=== PATIENT | male | born 1995 | race Caucasian/White ===

== ENCOUNTER 2020-03-13 04:54 | Emergency (ER) | payer OTHER ==
[2020-03-13 06:01] VITALS: BP 122/70; PULSE 74; TEMP 97.8; BMI 19.5
== END 2020-03-13 06:05 | disposition home or self-care (01) ==
LOC: JER 04:54
DX: L30.9 Dermatitis, unspecified (principal)
CPT/HCPCS: 99283-25

== ENCOUNTER 2020-06-09 16:32 | Emergency (ER) | payer OTHER ==
[2020-06-09 16:48] VITALS: BP 109/75; PULSE 83; TEMP 98.6; BMI 20.3
--- NOTE | 2020-06-09 17:21 | PDOC ---
History of Present Illness - General Chief Complaint: Rash Stated Complaint: ECZEMA Time Seen by Provider: 06/09/20 17:02 - History of Present Illness Initial Comments: 06/09/20 17:18 24-year-old male with a history of Eczema presents for evaluation of exacerbation of symptoms of rash and itching x1 month no systemic symptoms 06/09/20 17:19 Past History - Medical History Allergies/Adverse Reactions: Allergies Allergy/AdvReac Type Severity Reaction Status Date / Time shellfish derived Allergy Mild Rash Verified 06/09/20 16:44 shrimp Allergy Mild Rash Verified 06/09/20 16:44 Home Medications: Ambulatory Orders Triamcinolone 0.1% Ointment [Aristocort 0.1% Ointment -] 1 applic TP BID #1 tube 01/05/20 Clobetasol Propionate [Impoyz] 1 applic TP BID #60 g 01/22/20 Diphenhydramine HCl [Benadryl -] 25 mg PO Q6H #28 capsule 03/13/20 Triamcinolone 0.1% Cream [Aristocort 0.1% Cream -] 0 gm TP QID #1 tube 03/13/20 Clobetasol Propionate [Temovate] 30 gm TP BID #1 oint...g. 06/09/20 Methylprednisolone [Medrol Dose Samuel] 4 mg PO ASDIR #21 tablet 06/09/20 COPD: No - Immunization History Immunization Up to Date: Yes - Psycho-Social/Smoking History Smoking History: Never smoked Have you smoked in the past 12 months: Yes Number of Cigarettes Smoked Daily: 1 If you are a former smoker, when did you quit?: 6 months ago - Substance Abuse Hx (Audit-C & DAST Scrn) How often the patient has a drink containing alcohol: Never Score: In Men: 4 or > Positive; In Women: 3 or > Positive: 0 Screen Result (Pos requires Nsg. Audit-10AR): Negative Review of Systems - Review of Systems Constitutional: No: Fever Integumentary: Yes: Pruritus, Rash *Physical Exam - Vital Signs Last Vital Signs Temp Pulse Resp BP Pulse Ox 98.6 F 83 18 109/75 98 06/09/20 16:44 06/09/20 16:44 06/09/20 16:44 06/09/20 16:44 06/09/20 16:44 - Physical Exam General Appearance: Yes: Nourished, Appropriately Dressed. No: Apparent Distress HEENT: positive: Symmetrical Neck: positive: Supple Respiratory/Chest: negative: Respiratory Distress Musculoskeletal: positive: Normal Inspection Extremity: positive: Other (There is a papular rash on the forearms and right lower leg some superficial excoriations without indication of secondary infection) Medical Decision Making - Medical Decision Making 06/09/20 17:19 Exacerbation of Eczema rash. Clobetasol and Medrol Dosepak follow-up with dermatology I have reviewed the pathophysiology with the patient. They are in agreement wi th the treatment plan all questions were answered to their satisfaction. Understanding for follow-up without fail was also conveyed to the patient. Again they are in agreement. 06/09/20 17:19 Discharge - Discharge Information Problems reviewed: Yes Clinical Impression/Diagnosis: Eczema Condition: Stable Disposition: HOME - Admission No - Additional Discharge Information Prescriptions: Methylprednisolone [Medrol Dose Samuel] 4 mg PO ASDIR #21 tablet Clobetasol Propionate [Temovate] 30 gm TP BID #1 oint...g. - Follow up/Referral Referrals: Vinnie Warner MD [Primary Care Provider] - Camryn Ragland MD [Staff Physician] - - Patient Discharge Instructions Additional Instructions: Please use the medication as directed and return to the emergency room should you have further issues. Without fail follow-up with dermatology in 1 to 2 days for further evaluation and treatment options. - Post Discharge Activity
--- OUTSIDE RECORDS SUMMARY | 2020-06-09 18:10 | XMS ---
:1995 Author Organization [facility] Care Team Providers Name Role Phone ED STAFF PHYSICIANSOLANGE Unavailable Unavailable ED STAFF PHYSICIAN, STAFF Unavailable Unavailable ED STAFF PHYSICIANGORAN Unavailable Unavailable Re-disclosure Warning The records that you are about to access may contain information from federally- assisted alcohol or drug abuse programs. If such information is present, then the following federally mandated warning applies: This information has been disclosed to you from records protected by federal confidentiality rules (42 CFR part 2). The federal rules prohibit you from making any further disclosure of this information unless further disclosure is expressly permitted by the written consent of the person to whom it pertains or as otherwise permitted by 42 CFR part 2. A general authorization for the release of medical or other information is NOT sufficient for this purpose. The Federal rules restrict any use of the information to criminally investigate or prosecute any alcohol or drug abuse patient.The records that you are about to access may contain highly sensitive health information, the redisclosure of which is protected by Article 27-F of the [facility] Public Health law. If you continue you may haveaccess to information: Regarding HIV / AIDS; Provided by facilities licensed or operated by the [facility] Office of Mental Health; or Provided by the [facility] Office for People With Developmental Disabilities. If such information is present, then the following [facility] mandated warning applies: This information has been disclosed to you from confidential records which are protected by state law. State law prohibits you from making any further disclosure of this information without the specific written consent of the person to whom it pertains, or as otherwise permitted by law. Any unauthorized further disclosure in violation of state law may result in a fine or prison sentence or both. A general authorization for the release of medical or other information is NOT sufficient authorization for further disclosure. Encounters Encounter Providers Location Date Indications Data Source(s ) Emergency Attender: [facility] H 04/14/2020 [facility] STAFF 03:20:00 PM EDT Medical C enter PHYSICIANAttender: - 04/14/2020 STAFF ED STAFF 04:21:00 PM EDT PHYSICIANAdmitter: [facility] ED STAFF PHYSICIAN Patient discharged. Emergency Attender: [facility] STAFF H 03/31/2020 08:24:00 AM [facility] PHYSICIANAttender: STAFF ED EDT - 03/31/2020 [facility] STAFF PHYSICIANAdmitter: 11:13:00 AM EDT [place] ED STAFF PHYSICIAN Patient discharged. Medications Medication Brand Start Product Dose Route Administrative Pharmacy [facility] Indications Reaction Description Data Name Date Form Instructions Instructions Source(s) Clobetasol clobet 1 complet Ally t Propionate asol [facility] [place] 0.0005 0.05 % Medical MG/MG Ointme Center Topical nt, Ointment Ordere clobetasol d By: 0.05 % Margar Ointment, yneny Ordered By: Kwan Marie PADire PADirection ctions s: 1 : 1 application applic topical ation twice a day topica l twice a day Hydrocortis hydroc 1 complet Javy nt one 25 ortiso ed [place] MG/ML ne 2.5 Medical Topical % Center Cream Cream, hydrocortis Ordere one 2.5 % d By: Cream, Tieton Ordered By: Patrick Rosado MDDire MDDirection ctions s: 1 : 1 application applic topical ation twice a day topica PRN itching l twice a day PRN [place] Insurance Providers Payer name Policy type Policy ID Covered Covered libertarian's Policy P steffen / Coverage libertarian ID relationship to Michele Inf ormation type michele [employer] [id number] SP [id number] H MEDICAID [id number] SP [id number] O [facility] O [id number] 01 [id number] [facility] HEALTHC[facility] SELF PAY SP INSURANCE PENDING SP EXCHANGE Problems, Conditions, and Diagnoses Code Display Name Description Problem Type Effective Dates Data Source(s) L30.9 Dermatitis, DERMATITIS, Diagnosis 04/14/2020 [facility] unspecified UNSPECIFIED 03:20:00 PM EDT Medical Center R21 Rash and other RASH AND OTHER Diagnosis 03/31/2020 [facility] nonspecific skin NONSPECIFIC SKIN 08:24:00 AM E [facility] eruption ERUPTION Social History Code Duration Value Status Description Data Source(s ) Smoking 04/14/2020 Denies Ever completed Denies Ever Smoked [facility] 03:35:00 PM EDT Smoked Medical C enter Smoking 04/14/2020 Denies Ever completed Denies Ever Smoked [facility] 03:26:00 PM EDT Smoked Medical C enter Smoking 03/31/2020 Denies Ever completed Denies Ever Smoked [facility] 09:42:00 AM EDT Smoked Medical C enter Smoking 03/31/2020 Denies Ever completed Denies Ever Smoked [facility] 09:00:00 AM EDT Smoked Medical C enter Vital Signs ID Date Data Source UNK Name Value Range Interpretation Code Description Data Source(s) Body temperature 36.383089 36.245265 [facility] Respiratory rate 18 /min 18 /min [facility] Diastolic blood 70 mm[Hg] 70 mm[Hg] [facility] Systolic blood 120 mm[Hg] 120 mm[Hg] [facility] Body weight 57.447043 kg 57.190692 kg [facility] Body temperature 36.041033 36.568810 [facility] Respiratory rate 18 /min 18 /min [facility] Oxygen saturation 98 % 98 % [facility] Naina pool in Arterial blood [facility] by Pulse oximetry Heart rate 84 /min 84 /min [facility] Body height 170.993968 170.553422 cm [facility] Diastolic blood 72 mm[Hg] 72 mm[Hg] [facility] Systolic blood 121 mm[Hg] 121 mm[Hg] [facility] Body mass index 19.7 kg/m2 19.7 kg/m2 [facility] (BMI) [Ratio] [facility] Body temperature 36.907240 36.282319 [facility] Respiratory rate 17 /min 17 /min [facility] Oxygen saturation 98 % 98 % [facility] in Arterial blood [facility] by Pulse oximetry Heart rate 73 /min 73 /min [facility] Diastolic blood 73 mm[Hg] 73 mm[Hg] [facility] pressure [facility] Systolic blood 147 mm[Hg] 147 mm[Hg] [facility] pressure [facility] [place] Patient Treatment Plan of Care Planned Activity Planned Date Details Description Data Source (s) Clobetasol Propionate 0.0005 [facility] Medical MG/MG Topical Ointment Cente r Hydrocortisone 25 MG/ML [facility] Topical Cream [place]
== END 2020-06-09 17:52 | disposition home or self-care (01) ==
LOC: JER 16:32 → JERFT 16:32
DX: L20.9 Atopic dermatitis, unspecified (principal)
CPT/HCPCS: 99282-25

== ENCOUNTER 2020-06-22 13:34 | Emergency (ER) | payer OTHER ==
--- NOTE | 2020-06-22 13:50 | PDOC ---
Rapid Medical Evaluation Time Seen by Provider: 06/22/20 13:47 Medical Evaluation: Allergies Allergy/AdvReac Type Severity Reaction Status Date / Time shellfish derived Allergy Mild Rash Verified 06/09/20 16:44 shrimp Allergy Mild Rash Verified 06/09/20 16:44 06/22/20 13:47 I have performed a brief in-person examination on this patient. CC: rash to b/l arms and legs PE: scaly flesh colored raised rash to elbows. LE exam deferred Orders: nothing Patient will proceed to ED for further evaluation. Discharge Disposition - Diagnosis Eczema - Referrals - Patient Instructions - Post Discharge Activity
[2020-06-22 13:51] VITALS: BP 121/63; PULSE 84; TEMP 98.2; BMI 20.3
--- NOTE | 2020-06-22 14:56 | PDOC ---
History of Present Illness - General Chief Complaint: Rash Stated Complaint: SKIN RASH Time Seen by Provider: 06/22/20 13:47 History Source: Patient Exam Limitations: Clinical Condition - History of Present Illness Initial Comments: 06/22/20 14:56 Patient with past medical history of eczema present with complaint of flareup of his eczema for the past month with rash to bilateral elbow and lower legs consistent with his eczema. Patient reported eczema usually improved with clobetasol steroid cream. Denies any other symptoms Timing/Duration: reports: other (1 month) Past History - Medical History Allergies/Adverse Reactions: Allergies Allergy/AdvReac Type Severity Reaction Status Date / Time shellfish derived Allergy Mild Rash Verified 06/22/20 13:47 shrimp Allergy Mild Rash Verified 06/22/20 13:47 Home Medications: Ambulatory Orders Triamcinolone 0.1% Ointment [Aristocort 0.1% Ointment -] 1 applic TP BID #1 tube 01/05/20 Diphenhydramine HCl [Benadryl -] 25 mg PO Q6H #28 capsule 03/13/20 Triamcinolone 0.1% Cream [Aristocort 0.1% Cream -] 0 gm TP QID #1 tube 03/13/20 Clobetasol Propionate [Temovate] 30 gm TP BID #1 oint...g. 06/09/20 Methylprednisolone [Medrol Dose Samuel] 4 mg PO ASDIR #21 tablet 06/09/20 Clobetasol Propionate [Impoyz] 1 applic TP BID 7 Days #60 g 06/22/20 COPD: No - Immunization History Immunization Up to Date: Yes - Psycho-Social/Smoking History Smoking History: Never smoked Have you smoked in the past 12 months: Yes Number of Cigarettes Smoked Daily: 1 If you are a former smoker, when did you quit?: 6 months ago Information on smoking cessation initiated: No - Substance Abuse Hx (Audit-C & DAST Scrn) How often the patient has six or more drinks on one occasion: Less than monthly Score: In Men: 4 or > Positive; In Women: 3 or > Positive: 1 Screen Result (Pos requires Nsg. Audit-10AR): Negative In the last yr the pt used illegal drug/Rx for NonMed reason: No Score: Yes response is considered Positive: 0 Screen Result (Positive result requires Nsg. DAST-10): Negative Review of Systems - Review of Systems Able to Perform ROS?: Yes Is the patient limited Somali proficient: No Constitutional: No: Chills, Fever, Malaise HEENTM: No: Symptoms Reported, See HPI, Eye Pain, Blurred Vision, Tearing, Recent change in vision, Double Vision, Cataracts, Ear Pain, Ocular Prothesis, Ear Discharge, Nose Pain, Nose Congestion, Tinnitus, Nose Bleeding, Hearing Loss, Throat Pain, Throat Swelling, Mouth Pain, Dental Problems, Difficulty Swallowing, Mouth Swelling, Other Respiratory: No: Symptoms reported, See HPI, Cough, Orthopnea, Shortness of Breath, SOB with Exertion, SOB at Rest, Stridor, Wheezing, Productive cough, Hemoptysis, Other Cardiac (ROS): No: Symptoms Reported, See HPI, Chest Pain, Edema, Irregular Heart Rate, Lightheadedness, Palpitations, Syncope, Chest Tightness, Other Musculoskeletal: No: Symptoms Reported, See HPI, Muscle Pain Integumentary: Yes: Symptoms Reported, See HPI, Rash (eczema) Neurological: No: Numbness, Tingling, Weakness All Other Systems: Reviewed and Negative *Physical Exam - Vital Signs Last Vital Signs Temp Pulse Resp BP Pulse Ox 98.2 F 84 16 121/63 99 06/22/20 13:47 06/22/20 13:47 06/22/20 13:47 06/22/20 13:47 06/22/20 13:47 - Physical Exam 06/22/20 14:59 GENERAL: Well developed, well nourished. Awake and alert. No acute distress. HEENT: Normocephalic, atraumatic. PERRLA, EOMI. No conjunctival pallor. Sclera are non-icteric. Moist mucous membranes. Oropharynx is clear. NECK: Supple. Full ROM. PULMONARY: No evidence of respiratory distress. MUSCULOSKELETAL Normal range of motion at all joints. No tenderness of bilateral upper and lower extremities SKIN: Warm and dry. Normal capillary refill. erythematous plaques to olecranon of bilateral elbow pain anterior hopkins of bilateral lower leg with mild excoriations from scratching. No open wounds. No rash anywhere else. NEUROLOGICAL: Alert, awake, appropriate. Gait is normal without ataxia. PSYCHIATRIC: Cooperative. Good eye contact. Appropriate mood General Appearance: Yes: Nourished, Appropriately Dressed. No: Apparent Distress Medical Decision Making - Medical Decision Making 06/22/20 14:57 Patient with past medical history of eczema present with complaint of flareup of his eczema for the past month with rash to bilateral elbow and lower legs consistent with his eczema. Patient reported eczema usually improved with clobetasol steroid cream. Denies any other symptoms Exam significant for erythematous plaques to olecranon of bilateral elbow pain anterior hopkins of bilateral lower leg with mild excoriations from scratching. No open wounds. No rash anywhere else. Symptoms consistent with patient's eczema. Patient stable for discharge on clobetasol with dermatology follow-up Discharge - Discharge Information Problems reviewed: Yes Clinical Impression/Diagnosis: Eczema Qualifiers: Eczema type: unspecified Qualified Code(s): L30.9 - Dermatitis, unspecified Condition: Stable Disposition: HOME - Admission No - Additional Discharge Information Prescriptions: Clobetasol Propionate [Impoyz] 1 applic TP BID 7 Days #60 g - Follow up/Referral Referrals: Camryn Ragland MD [Staff Physician] - Abner Patrick [Staff Physician] - - Patient Discharge Instructions Patient Printed Discharge Instructions: Eczema, DI for Atopic Dermatitis-Adult Additional Instructions: Use prescribed cream as prescribed for eczema. Follow-up referring derm atologist as soon as possible - Post Discharge Activity
== END 2020-06-22 15:00 | disposition home or self-care (01) ==
LOC: JERFT 13:34
DX: L30.9 Dermatitis, unspecified (principal)
CPT/HCPCS: 99282-25

== ENCOUNTER 2021-02-18 03:45 | Emergency (ER) | payer OTHER ==
[2021-02-18 03:54] VITALS: BMI 19.5
[2021-02-18] MEDS ORDERED: EPINEPHrine 1:1,000 0.3 MG/0.3 ML SYR IM ONE (03:54)
[2021-02-18] MEDS ORDERED: FAMOTIDINE 20 MG/50 ML IVPB 20 MG/50 ML MG IVPB ONE ×2 (03:54→03:56)
[2021-02-18] MEDS ORDERED: EPINEPHrine/PF 1 MG/1 ML (1:1,000) AMPULE ONE (03:55)
[2021-02-18] MEDS ORDERED: methylPREDNISolone NA SUCC 125 MG/2 ML VIAL ONE (03:55)
[2021-02-18] MEDS ORDERED: methylPREDNISolone NA SUCC 125 MG/2 ML VIAL IVPB ONE (03:56)
[2021-02-18 06:19] VITALS: BP 125/84; PULSE 91; TEMP 97.8
== END 2021-02-18 07:20 | disposition home or self-care (01) ==
LOC: JER 03:45
PROC: 3E033NZ Introduction of Analgesics, Hypnotics, Sedatives into Peripheral Vein, Percutaneous Approach (ICD-10-PCS; principal; 2021-02-18)
PROC: 3E023NZ Introduction of Analgesics, Hypnotics, Sedatives into Muscle, Percutaneous Approach (ICD-10-PCS; 2021-02-18)
PROC: 3E033GC Introduction of Other Therapeutic Substance into Peripheral Vein, Percutaneous Approach (ICD-10-PCS; 2021-02-18)
DX: T78.2XXA Anaphylactic shock, unspecified, initial encounter (principal)
CPT/HCPCS: 99285-25

== ENCOUNTER 2021-02-18 22:10 | Emergency (ER) | payer OTHER ==
[2021-02-18] MEDS ORDERED: EPINEPHrine 1:1,000 0.3 MG/0.3 ML SYR IM ONE (22:14)
[2021-02-18] MEDS ORDERED: EPINEPHrine/PF 1 MG/1 ML (1:1,000) AMPULE ONE (22:15)
[2021-02-18] MEDS ORDERED: methylPREDNISolone NA SUCC 125 MG/2 ML VIAL IVPB ONE (22:15)
[2021-02-18] MEDS ORDERED: FAMOTIDINE 20 MG/50 ML IVPB 20 MG/50 ML MG IVPB ONE ×2 (22:15→22:16)
[2021-02-18] MEDS ORDERED: methylPREDNISolone NA SUCC 125 MG/2 ML VIAL ONE (22:16)
[2021-02-18 22:31] VITALS: TEMP 98.2; BMI 19.5
[2021-02-18] MEDS ORDERED: SODIUM CHLORIDE 0.9% 500 ML INFUS.BAG IV ONE (22:32)
[2021-02-19 02:15] VITALS: PULSE 73
[2021-02-19 04:04] VITALS: BP 125/76
== END 2021-02-19 04:04 | disposition home or self-care (01) ==
LOC: JER 22:10
PROC: 3E023NZ Introduction of Analgesics, Hypnotics, Sedatives into Muscle, Percutaneous Approach (ICD-10-PCS; principal; 2021-02-18)
PROC: 3E033NZ Introduction of Analgesics, Hypnotics, Sedatives into Peripheral Vein, Percutaneous Approach (ICD-10-PCS; 2021-02-18)
PROC: 3E033GC Introduction of Other Therapeutic Substance into Peripheral Vein, Percutaneous Approach (ICD-10-PCS; 2021-02-18)
DX: T78.2XXA Anaphylactic shock, unspecified, initial encounter (principal)
CPT/HCPCS: 99285-25

== ENCOUNTER 2021-03-07 21:57 | Emergency (ER) | payer OTHER ==
[2021-03-07 22:01] VITALS: BP 129/87; PULSE 88; TEMP 98.3; BMI 20.3
[2021-03-07] MEDS ORDERED: DIPHTH,PERTUSS(ACELL),TET 0.5 ML DISP.SYRIN IM ONE (22:40)
== END 2021-03-08 00:11 | disposition home or self-care (01) ==
LOC: JER 21:57 → JERFT 21:57 → JER 03-08 00:11
PROC: 3E0234Z Introduction of Serum, Toxoid and Vaccine into Muscle, Percutaneous Approach (ICD-10-PCS; principal; 2021-03-07)
DX: S61.211A Laceration without foreign body of left index finger without damage to nail, initial encounter (principal)
CPT/HCPCS: 73130-TC-LT-FY; 99284-25